=== PATIENT | female | born 1945 | race Caucasian/White ===

== ENCOUNTER 2018-01-19 20:14 | Emergency (ER) | payer MEDICARE ==
[~2018-01-19] VITALS: Ht 172.7 cm; Wt 78.6 kg
[2018-01-19 20:15] VITALS: Ht 172.7 cm; Wt 78.6 kg
[2018-01-19] MEDS ORDERED: ZIAC 5-6.25 MG1 TAB (20:16)
[2018-01-19] MEDS ORDERED: ELAVIL10 MG PO (20:17)
[2018-01-19] MEDS ORDERED: SYNTHROID112 MCG PO (20:17)
[2018-01-19] MEDS ORDERED: LIPITOR40 MG PO (20:17)
[2018-01-19] MEDS ORDERED: RESTORIL15 MG PO (20:18)
[2018-01-19] MEDS ORDERED: PREMARIN0.625 MG PO (20:18)
[2018-01-19] MEDS ORDERED: EFFEXOR75 MG PO (20:18)
[2018-01-19] MEDS ORDERED: CLOBEX59 ML TP (20:18)
[2018-01-19] MEDS ORDERED: CALCIUM 600 +1 EAC3 (20:19)
[2018-01-19] MEDS ORDERED: BAYER CHEWABLE81 MG PO (20:19)
[2018-01-19] MEDS ORDERED: FERROUS SULFAT325 MG PO (20:19)
[2018-01-19] MEDS ORDERED: VITAMIN D5000 UNIT PO (20:19)
[2018-01-19] MEDS ORDERED: MAGNESIUM OXID250 MG PO (20:20)
[2018-01-19] MEDS ORDERED: MERIBIN5 MG PO (20:20)
[2018-01-19 22:47] LABS: BASOPHILS 0.2 % (0-2); EOSINOPHILS 0.1 % (0-7); HEMATOCRIT 37.5 % (36.0-48.0); HEMOGLOBIN 12.2 g/dL (12-16); IMMATURE GRANULOCYTES 0.3 % (0-5); LYMPHOCYTES 4.4 % (15-50); MCH 28.4 pg (26.0-34.0); MCHC 32.5 g/dL (31.0-37.0); MCV 87.4 fL (80.0-100.0); MEAN PLATELET VOLUME 9.7 fL (7.4-10.4); PLATELET COUNT 229 10x3/uL (130-400); RBC 4.29 10x6/uL (4.00-5.40); RDW 14.2 % (11.5-14.5); WBC 16.2 10x3/uL (4.8-10.8)
[2018-01-19 23:15] LABS: ALBUMIN 2.8 g/dL (3.4-5.0); ALKALINE PHOSPHATASE 118 U/L (46-116); ALT (SGPT) 17 U/L (10-68); CALC OSMOLALITY 283 mosm/kg (275-300); CALCIUM 8.5 mg/dL (8.5-10.1); CARBON DIOXIDE 26.8 mmol/L (21.0-32.0); CHLORIDE - SERUM 105 mmol/L (98-107); CREATININE - SERUM 1.3 mg/dL (0.6-1.3); GLUCOSE 109 mg/dL (74-106); POTASSIUM - SERUM 4.2 mmol/L (3.5-5.1); PROTEIN - SERUM 6.4 g/dL (6.4-8.2); SODIUM 140 mmol/L (136-145); UREA NITROGEN 23 mg/dL (7-18); eGFR NON AFRICAN AMERICAN 43 mL/min (90-120)
[2018-01-19 23:31] LABS: CKMB 0.6 U/L (0.0-3.6); CREATINE KINASE 35 UL (21-215); MAGNESIUM - SERUM 2.1 mg/dL (1.8-2.4)
[2018-01-19 23:34] LABS: TROPONIN-I < 0.017 ng/mL (0.000-0.060)
[2018-01-19 23:37] LABS: APPEARANCE HAZY (CLEAR); BILIRUBIN NEGATIVE (NEGATIVE); COLOR DK YELLOW (YELLOW); GLUCOSE NEGATIVE (NEGATIVE); KETONE NEGATIVE (NEGATIVE); NITRITE NEGATIVE (NEGATIVE); PROTEIN 1+ mg/dL (NEGATIVE); SPECIFIC GRAVITY 1.015 (1.005-1.020); UROBILINOGEN NORMAL (NORMAL)
[2018-01-19 23:39] LABS: BACTERIA MODERATE /hpf (NONE SEEN); EPITHELIAL CELLS 0-5 /hpf (0-5); RED CELLS - URINE 0-5 /hpf (0-5)
[2018-01-19] MEDS ORDERED: MACROBID100 MG PO (23:54)
[2018-01-20 00:03] VITALS: BP 135/74
== END 2018-01-20 00:04 | disposition home or self-care (01) ==
LOC: D.ER 20:14
PROVIDERS: Family Medicine
DX: I10 Essential (primary) hypertension (principal); N39.0 Urinary tract infection, site not specified

== ENCOUNTER → 2020-05-18 18:08 | Outpatient (CLI) | payer MEDICARE ==
[2018-01-19 20:15] VITALS: BMI 26.3
[~2020-05-18 18:08] MED LIST: BAYER CHEWABLE81 MG PO; CALCIUM 600 +1 EAC3; CLOBEX59 ML TP; EFFEXOR75 MG PO; ELAVIL10 MG PO; FERROUS SULFAT325 MG PO; LIPITOR40 MG PO; MACROBID100 MG PO; MAGNESIUM OXID250 MG PO; MERIBIN5 MG PO; PREMARIN0.625 MG PO; RESTORIL15 MG PO; SYNTHROID112 MCG PO; VITAMIN D5000 UNIT PO; ZIAC 5-6.25 MG1 TAB
== END | disposition home or self-care (01) ==
LOC: D.LABREF 18:08
DX: N39.0 Urinary tract infection, site not specified (principal)